=== PATIENT | female | born 2005 | race Two or more races ===

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

== ENCOUNTER 2024-10-20 23:06 | Emergency (ER) | payer BC, MEDICAID ==
[~2024-10-20] VITALS: Ht 149.9 cm; Wt 76.0 kg
[~2024-10-20 23:06] MED LIST: DIPH25CA83 PO; FAMO40TA73 PO
[2024-10-21 00:41] LABS: STREP A SCREEN NEGATIVE (Neg)
--- NOTE | 2024-10-21 00:58 | Physician Documentation ---
History of Present Illness ~ Chief Complaint: Cold, cough & congestion Stated Complaint: FEVER Time Seen by MD: 23:55 OK to notify your PCP?: Yes Primary Medical Doctor: in [place] Source: patient, family HPI Patient is seen today with complaints of two days of nasal congestion, sinus pressure, ear pain, sore throat. Patient also admits to fever or 104 measured at home. Patient states she took some Tylenol and ibuprofen prior to coming here. Patient states she needs a note for work. Patient denies any chest pain or shortness of breath or abdominal pain or nausea, vomiting, diarrhea. She has no other concern or complaint at this time. Medication Reconciliation Allergies: Coded Allergies: No Known Allergies (Unverified , 10/20/24) Scheduled Diphenhydramine Hcl (Benadryl), 1 CAP PO TID Famotidine (Pepcid), 1 TAB PO DAILY Past Medical History Past Medical History: Asthma Past Surgical History: no surgical history Alcohol Use: None Drug Use: none Lives with: Mother Lives In: Home Review of Systems Constitutional: Denies: chills, fever, weakness Eyes: Denies: pain, blurred vision ENT: Denies: ear pain, nose pain, throat pain, mouth pain Respiratory: Denies: cough, shortness of breath Cardiovascular: Denies: chest pain, palpitations Gastrointestinal: Denies: abdominal pain, nausea, vomiting Genitourinary: Denies: burning, dysuria Female Genitalia: Denies: vaginal discharge, pelvic pain Neurological: Denies: headache, dizziness Musculoskeletal: Denies: pain, swelling Integumentary: Denies: rash, lesions Allergic/Immunologic: Denies: hives, itching Hematologic/Lymphatic: Denies: no symptoms reported Psychiatric: Denies: depression, anxiety Physical Exam Vital Signs: Temperature: 99.5, Source: Temporal, Heart Rate: 93, Respiratory Rate: 18, BP: 133/70, Pulse Oximetry: 99, Weight: 76.000 Physical Exam General: Awake and Alert, no acute distress. HEENT: On exam I do not appreciate any anterior or posterior cervical lymphadenopathy. Patient does have significant erythema of the oropharynx. Patient has small tonsils. Patient does have some mucus present in the oropharynx. She has mild tenderness to palpation of the maxillary sinuses. TMs are unremarkable bilaterally. Conjunctiva pink, Sclera clear, Mucus Membranes moist. Neck: Supple without masses and tenderness. Resp: Unlabored. Lungs clear to auscultation bilaterally. Heart: Regular Rate and rhythm, normal S1 and S2 without murmur, rub or gallop. Abdomen: Soft and non tender no organomegaly Extremities: No cyanosis,clubbing or edema. Skin: Warm and Dry. Progress Results/Orders Results/Orders Orders - VENCESJOSE R Chen PAC Covid19 Binax Poc Result Entry (10/21/24 00:01) Cult Throat + R/O Beta Strep (10/21/24 00:41) Completed Orders - JOSE R VENCES PAC Strep A Rapid (10/21/24 00:22) Vital Signs 10/20/24 23:11 Temp 99.5 Pulse 93 Resp 18 B/P (MAP) 133/70 Pulse Ox 99 Laboratory Tests Test 10/21/24 00:07 10/21/24 00:18 SARS-CoV-2 Antigen (Rapid) Negative Group A Streptococcus Rapid Negative Medical Decision Making Findings Patient is seen today with complaints of two days of nasal congestion, sinus pressure, ear pain, sore throat. Patient also admits to fever or 104 measured at home. Patient states she took some Tylenol and ibuprofen prior to coming here. Patient states she needs a note for work. Patient denies any chest pain or shortness of breath or abdominal pain or nausea, vomiting, diarrhea. She has no other concern or complaint at this time. Rapid strep and COVID tests were negative today. Patient will be discharged home and treat symptomatically with Tylenol and ibuprofen increase rest and fluids and will be given a note for work to be off for one week. Patient will follow up with primary care in 3-5 days if no better as needed sooner. Return to ED with any worsening, concerning or changing symptoms. Departure Disposition: HOME / SELF CARE / HOMELESS Impression: Primary Impression: Acute URI Condition: Improved Discharge Instructions: Upper Respiratory Infection, Adult Additional Instructions: Rapid strep and COVID tests were negative today. Patient will be discharged home and treat symptomatically with Tylenol and ibuprofen increase rest and fluids and will be given a note for work to be off for one week. Patient will follow up with primary care in 3-5 days if no better as needed sooner. Return to ED with any worsening, concerning or changing symptoms. Departure Forms: Excuse form Work or School Excused From: Work Excuse beginning now through the following date: Oct 27, 2024 Referrals: NO PRIMARY CARE PROVIDER (PCP) Signature Scribe Signature: No scribe Attestation: No scribe JOSE R VENCES PAC Oct 21, 2024 00:58
[2024-10-21 01:05] VITALS: BP 130/68; PULSE 90; RESP 18; TEMP 99; O2SAT 99
== END 2024-10-21 01:06 | disposition home or self-care (01) ==
LOC: ER 23:07
DX: J06.9 Acute upper respiratory infection, unspecified (principal); J45.909 Unspecified asthma, uncomplicated; Z79.899 Other long term (current) drug therapy; Z20.822 Contact with and (suspected) exposure to COVID-19
CPT/HCPCS: 36415; 87081; 87811; 87880; 99283